=== PATIENT | female | born 1965 | race Two or more races ===

== ENCOUNTER 2022-10-18 16:35 | Inpatient (IN) | payer OTHER ==
[~2022-10-18] VITALS: Ht 162.6 cm; Wt 50.8 kg
[~2022-10-18 16:35] MED LIST: ATOR40TA PO; Aspirin Ec PO; CARV3.122 PO; CLON0.1T PO; GABA-532 PO; GUAI100S9 PO; LOSA25TA27 PO; OXYC-128 PO
--- NOTE | 2022-10-18 17:00 | NUR ---
RECEVED PT 57 YRS FEMALE TRANSFER FROM SNF FOR ABDOMINA PAIN SOFT ONE TENDER TO TOUCH
--- NOTE | 2022-10-18 17:05 | NUR ---
ELIAS DIEGO ON [facility]
--- NOTE | 2022-10-18 17:25 | NUR ---
SEEN BY DR. CARNEY
--- NOTE | 2022-10-18 17:30 | NUR ---
BLOOD DROW BY LAB TACH
--- NOTE | 2022-10-18 18:30 | NUR ---
I&O CATHETER DONE NO URIN OUT PUT NONE
[2022-10-18] MEDS ORDERED: DIVA125C2 PO (18:36)
[2022-10-18] MEDS ORDERED: ATOR40TA PO (18:36)
[2022-10-18] MEDS ORDERED: CARV3.122 PO (18:36)
[2022-10-18] MEDS ORDERED: LOSA50TA39 PO (18:36)
[2022-10-18] MEDS ORDERED: ASPI-1420 PO (18:36)
--- NOTE | 2022-10-18 19:00 | NUR ---
COVID SWAB SENT TO LAB
[2022-10-18 19:09] LABS: BASOPHILS # (AUTO) 0.1 K/uL (0.0-0.2); EOSINOPHILS % (AUTO) 1.4 % (0.0-6.0); HEMATOCRIT 26 % (33-45); HEMOGLOBIN 8.1 g/dL (11.5-14.8); MEAN CORPUSCULAR HGB CONC 32 g/dl (31.0-36.0); MEAN CORPUSCULAR VOLUME 98 fL (82-100); MONOCYTES # (AUTO) 0.4 K/uL (0.1-1.30); MONOCYTES % (AUTO) 5.1 % (2.0-12.0); NEUTROPHILS # (AUTO) 5.8 K/uL (1.8-8.9); NEUTROPHILS % (AUTO) 78.5 % (43.0-81.0); PLATELET COUNT (AUTO) 343 K/uL (150-450); RED BLOOD CELL COUNT(AUTO) 2.63 MIL/uL (4.0-5.2); WHITE BLOOD COUNT (AUTO) 7.4 K/uL (4.3-11.0)
[2022-10-18 19:39] LABS: ALANINE AMINOTRANSFERASE 13 U/L (12-78); ALBUMIN 2.4 g/dL (3.4-5.0); ALKALINE PHOSPHATASE 247 U/L (46-116); ASPARTATE AMINOTRANSFERASE 17 U/L (15-37); BILIRUBIN,DIRECT 0.1 mg/dL (0.0-0.2); BILIRUBIN,TOTAL 0.3 mg/dL (0.2-1.0); CHLORIDE 96 mmol/L (98-107); GLUCOSE 81 mg/dL (74-106); LIPASE 27 U/L (73-393); SODIUM SERUM 129 mmol/L (136-145); TOTAL PROTEIN, SERUM 7.1 g/dL (6.4-8.2)
[2022-10-18 19:41] LABS: MAGNESIUM 2.2 mg/dL (1.8-2.4)
--- NOTE | 2022-10-18 19:41 | NUR ---
HAND OFF GAUDENCIO CAMPOS
[2022-10-18 20:01] LABS: CALCIUM, SERUM 5.6 mg/dL (8.5-10.1); CARBON DIOXIDE 7 mmol/L (21-32); CREATININE 9.9 mg/dL (0.6-1.3); UREA NITROGEN, BLOOD 114 mg/dL (7-18)
[2022-10-18 20:02] LABS: PHOSPHORUS 16.3 mg/dL (2.5-4.9)
--- NOTE | 2022-10-18 20:17 | NUR ---
DARREN COKER [phone]
[2022-10-18] MEDS ORDERED: CALCIUM CHLORIDE 1,000 MG/10 ML DISP.SYRIN ONE (20:21)
[2022-10-18] MEDS ORDERED: SODIUM POLYSTYRENE SULFONATE 15 G/60 ML BOTTLE ONE (20:21)
[2022-10-18] MEDS ORDERED: DEXTROSE 50%-WATER 50 ML DISP.SYRIN ONE (20:22)
[2022-10-18] MEDS ORDERED: INSULIN REGULAR, HUMAN 100 UNIT/ML 10 ML VIAL ONE (20:22)
[2022-10-18] MEDS ORDERED: ALBUTEROL FS 2.5 MG/3 ML VIAL.NEB ONE (20:23)
[2022-10-18] MEDS ORDERED: INSULIN REGULAR, HUMAN 100 UNIT/ML 10 ML VIAL IV ONE (20:30)
[2022-10-18] MEDS ORDERED: SODIUM POLYSTYRENE SULFONATE 15 G/60 ML BOTTLE PO ONE (20:30)
[2022-10-18] MEDS ORDERED: CALCIUM CHLORIDE 1,000 MG/10 ML DISP.SYRIN IV ONE (20:30)
[2022-10-18] MEDS ORDERED: ALBUTEROL FS 2.5 MG/3 ML VIAL.NEB NEB ONE (20:30)
[2022-10-18] MEDS ORDERED: DEXTROSE 50%-WATER 50 ML DISP.SYRIN IV ONE (20:30)
--- NOTE | 2022-10-18 21:10 | NUR ---
DIALYSIS NURSE AMAN [phone]. CALL ONCE PATIENT IS READY FOR DIALYSIS
--- NOTE | 2022-10-18 22:35 | NUR ---
ROOM NOT READY PER ENTERTAINMENT DIRECTOR, WILL CALL AGAIN
--- NOTE | 2022-10-18 22:55 | NUR ---
CLEANED PATIENT AND CHANGED INTO A GOWN.
--- NOTE | 2022-10-18 23:17 | NUR ---
REPORT GIVEN TO MOLLY CAMPOS FOR JONELLE
[2022-10-18] MEDS ORDERED: Z GUARD REMEDY 4 OZ OINT TP PRN (23:30)
[2022-10-18] MEDS ORDERED: ACETAMINOPHEN 325 MG TABLET PO PRN (23:30)
[2022-10-18] MEDS ORDERED: MAG HYDROX/AL HYDROX/SIMETH 30 ML UDC PO PRN (23:30)
[2022-10-18] MEDS ORDERED: ONDANSETRON HCL/PF 4 MG/2 ML VIAL IVP PRN (23:30)
[2022-10-18] MEDS ORDERED: HYDROCODONE/APAP 5/325MG TABLET PO PRN (23:30)
[2022-10-18] MEDS ORDERED: ZOLPIDEM TARTRATE 5 MG TABLET PO PRN (23:30)
[2022-10-18] MEDS ORDERED: MAGNESIUM HYDROXIDE 30 ML UDC PO PRN (23:30)
--- NOTE | 2022-10-18 23:44 | NUR ---
TRANSFERRED TO BED 120 IN STABLE CONDITION
--- NOTE | 2022-10-18 23:55 | NUR ---
RN NOTES RECEIVED REPORT FROM MOLLY CAMPOS FOR JONELLE, PT IN BED AWAKE, A/O X 1, PT DIAGNOSIS MISSED DIALYSIS AND HYPERKALEMIA, ON RA TOLERATING WELL SATING 97%, NOTED WITH APNEA RR 12. AFEBRILE, WITH R HAND #20G FLUSHED WITH NS, NO S/S OF INFILTRATION NOTED. ADMISSION CARE RENDERED, ALL SAFETY MEASURES IMPLEMENTED, BED IN LOWEST POSITION, LOCKED, SIDE RAILS UP, CALL LIGHT WITHIN REACH. ADMITTING MD AT BEDSIDE, STAT DIALYSIS STARTED WITH AMAN CAMPOS. WILL CONTINUE TO MONITOR.
--- NOTE | 2022-10-18 23:56 | NUR ---
JOHN PAUL IS THE INCORRECT INFORMATION
[2022-10-19] VITALS: BP 132/75
[2022-10-19] LABS: BILIRUBIN,URINE NEGATIVE (NEGATIVE); COLOR,URINE YELLOW (YELLOW); LEUKOCYTE ESTERASE ,URINE 1+ (NEGATIVE); NITRITE, URINE NEGATIVE (NEGATIVE); PH,URINE 5.5 (5.0-8.0); PROTEIN,URINE 3+ mg/dl (NEGATIVE); UGLUCOSE NEGATIVE (NEGATIVE); UROBILINOGEN,URINE 0.2 EU/dL (0.2)
[2022-10-19 00:09] LABS: BACTERIA,URINE Few /HPF (None Seen); SQUAMOUS EPITHELIAL CELL,UR Many /HPF (None Seen); URINE AMORPHOUS URATE Many /HPF (None Seen)
--- NOTE | 2022-10-19 00:58 | NUR ---
RN NOTE RECEIVED CRITICAL LAB RESULT FROM LAB TROPONIN 410. MD NOTIFIED, ORDERED ASPIRIN 325 PO AND STAT EKG. ORDER TAKEN AND CARRIED OUT, WILL CONT OT MONITOR.
[2022-10-19] MEDS ORDERED: ASPIRIN 325 MG TABLET PO ONE (01:30)
--- NOTE | 2022-10-19 06:53 | NUR ---
ROSI RN CLOSING NOTES PT REMAINS IN BED ASLEEP BUT EASILY AROUSABLE TO TOUCH AND VOICE, A/O X 1, ON RA TOLERATING WELL SATING 97%, AFEBRILE, PT CONNECTED TO TELEMONITOR AFIB CONTROLLED 64, WITH R HAND #20G FLUSHED WITH NS, NO S/S OF INFILTRATION NOTED. ALL SAFETY MEASURES IMPLEMENTED, BED IN LOWEST POSITION, LOCKED, SIDE RAILS UP, CALL LIGHT WITHIN REACH. DIALYSIS DONE WITH STABLE V/S 2L OUT, WILL ENDORSE TO AM SHIFT NURSE FOR CONTINUITY OF CARE.
[2022-10-19 07:11] LABS: CALCIUM, SERUM 6.7 mg/dL (8.5-10.1); CREATININE 5.2 mg/dL (0.6-1.3); MAGNESIUM 1.9 mg/dL (1.8-2.4); PHOSPHORUS 7.9 mg/dL (2.5-4.9)
[2022-10-19 07:28] LABS: BASOPHILS % (AUTO) 0.4 % (0.0-2.0); EOSINOPHILS % (AUTO) 0.5 % (0.0-6.0); HEMATOCRIT 24 % (33-45); HEMOGLOBIN 7.8 g/dL (11.5-14.8); LYMPHOCYTES # (AUTO) 0.9 K/uL (0.8-4.8); LYMPHOCYTES % (AUTO) 10.6 % (20.0-44.0); MEAN CORPUSCULAR HGB CONC 33 g/dl (31.0-36.0); MEAN CORPUSCULAR VOLUME 93 fL (82-100); MONOCYTES # (AUTO) 0.7 K/uL (0.1-1.30); MONOCYTES % (AUTO) 8.1 % (2.0-12.0); NEUTROPHILS # (AUTO) 6.9 K/uL (1.8-8.9); NEUTROPHILS % (AUTO) 80.4 % (43.0-81.0); PLATELET COUNT (AUTO) 349 K/uL (150-450); RED BLOOD CELL COUNT(AUTO) 2.55 MIL/uL (4.0-5.2); WHITE BLOOD COUNT (AUTO) 8.5 K/uL (4.3-11.0)
--- NOTE | 2022-10-19 07:30 | NUR ---
RN NOTE RECEIVED PATIENT IN BED RESTING ALERT ORIENTED X1 NON VERBAL EYES OPEN IV SITE IS ON LEFT HAND INTACT AND RIGHT PERM-CATH FOR HD INTACT PATENT,SAFETY MEASURE IMPLEMENT BED IN LOW POSITION AND LOCKED,HEAD OF BED ELEVATED CONTINUE TO MONITOR.
[2022-10-19] MEDS: PANTOPRAZOLE 40 MG TABLET.DR PO SCH (07:32)
[2022-10-19 08:13] LABS: POTASSIUM 2.2 mmol/L (3.5-5.1)
[2022-10-19] MEDS: ASPIRIN 81 MG TAB.CHEW PO SCH (08:52)
[2022-10-19] MEDS: HEPARIN SODIUM, PORCINE 5000 UNITS/1 ML VIAL SQ SCH ×2 (08:56→21:09)
[2022-10-19] MEDS ORDERED: POTASSIUM CHLORIDE 10 MEQ/50 ML PREMIXED IVPB FOR PERIPHERAL LINE IV ONE ×2 (09:00→10:00)
[2022-10-19] MEDS ORDERED: POTASSIUM CHLORIDE 20 MEQ TAB.PRT.SR PO ONE (12:00)
[2022-10-19 13:00] VITALS: BP 145/70
[2022-10-19] MEDS: ATORVASTATIN 40 MG TABLET PO SCH ×2 (16:00→21:09)
[2022-10-19 17:00] VITALS: BP 135/76
[2022-10-19] MEDS: CARVEDILOL 6.25 MG TABLET PO SCH (17:00)
--- NOTE | 2022-10-19 18:48 | NUR ---
RN NOTE PATIENT REMAINS ALERT ORIENTED X1 ON ROOM AIR NO SOB NOT ACUTE DISTRESS NOTED,ALL DUE MEDS GIVEN MD ORDERED,POTASSIUM GIVEN FOR POTASSIUM 2.2.KEPT CLEAN AND DRY ALL THE TIME,TURNED AND REPOSITIONED EVERY 2 HOURS,KEPT HEAD OF THE BED ELEVATED WILL ENDORSE NEXT COMING SHIFT FOR CONTINUATION OF CARE.
--- NOTE | 2022-10-19 19:15 | NUR ---
VEHICLE CALIBRATION ENGINEER OPENING NOTE RECEIVED PATIENT IN BED, AAO X 1-2, ON ROOM AIR, NO SOB/DISTRESS NOTED. ON TELE MONITOR CONTROLLED AFIB WITH HR OF 76. RIGHT CHEST WALL PERMACATH NOTED. IV ACCESS ON LEFT HAND #20 G S/L, INTACT AND FLUSHING WELL. SAFETY PRECAUTIONS IN PLACE: BED LOCKED AND IN LOWEST POSITION, SIDE RAILS UP X3, CALL LIGHT WITHIN REACH.
[2022-10-19 21:00] VITALS: BP 139/73
[2022-10-20] VITALS: BP 157/73
[2022-10-20 04:00] VITALS: BP 157/88
[2022-10-20 06:06] LABS: BASOPHILS % (AUTO) 0.7 % (0.0-2.0); EOSINOPHILS % (AUTO) 0.5 % (0.0-6.0); HEMATOCRIT 22 % (33-45); HEMOGLOBIN 7.5 g/dL (11.5-14.8); LYMPHOCYTES # (AUTO) 1.1 K/uL (0.8-4.8); LYMPHOCYTES % (AUTO) 19.1 % (20.0-44.0); MEAN CORPUSCULAR HGB CONC 34 g/dl (31.0-36.0); MEAN CORPUSCULAR VOLUME 93 fL (82-100); MONOCYTES # (AUTO) 0.6 K/uL (0.1-1.30); NEUTROPHILS # (AUTO) 3.9 K/uL (1.8-8.9); NEUTROPHILS % (AUTO) 68.7 % (43.0-81.0); PLATELET COUNT (AUTO) 339 K/uL (150-450); WHITE BLOOD COUNT (AUTO) 5.7 K/uL (4.3-11.0)
[2022-10-20 06:12] LABS: CREATININE 6.5 mg/dL (0.6-1.3); MAGNESIUM 1.9 mg/dL (1.8-2.4); POTASSIUM 3.3 mmol/L (3.5-5.1)
[2022-10-20 06:52] LABS: CALCIUM, SERUM 5.5 mg/dL (8.5-10.1); PHOSPHORUS 9.9 mg/dL (2.5-4.9)
--- NOTE | 2022-10-20 07:05 | NUR ---
EXPERIMENTAL PREFLIGHT MECHANIC CLOSING NOTE PATIENT IN BED, AAO X 1-2, ON ROOM AIR, NO SOB/DISTRESS NOTED. ON TELE MONITOR CONTROLLED AFIB WITH HR OF 76. RIGHT CHEST WALL PERMACATH NOTED. IV ACCESS ON LEFT HAND #20 G S/L, INTACT AND FLUSHING WELL. ALL DUE MEDS WERE GIVEN AND NEEDS ATTENDED. SAFETY PRECAUTIONS MAINTAINED: BED LOCKED AND IN LOWEST POSITION, SIDE RAILS UP X3, CALL LIGHT WITHIN REACH. WILL ENDORSE TO ONCOMING NURSE FOR JONELLE.
--- NOTE | 2022-10-20 07:15 | NUR ---
SHOP WORKER OPEN NOTE: ALERT AND ORIENTED TO NAME. UNLABORED BREATHING. GREEN JOBS TRAINER A.FIB CONTROLLED. RIGHT UPPER CHEST WALL HD CATHETER WITH CLEAN DRESSING. LEFT HAND PEIPHERAL IV SALINE LOCKED. HOB ELEVATED. BILATERAL HALF SIDE RAILS UP X2. BED IN LOW POSITION, LOCKED, EXIT ALARM ON. CALL LIGHT IN REACH. DENIES PAIN OR DISCOMFORT.
[2022-10-20 08:00] VITALS: BP 164/90
[2022-10-20] MEDS: PANTOPRAZOLE 40 MG TABLET.DR PO SCH (08:41)
[2022-10-20] MEDS: ASPIRIN 81 MG TAB.CHEW PO SCH (09:59)
[2022-10-20] MEDS: CARVEDILOL 6.25 MG TABLET PO SCH (10:00)
[2022-10-20] MEDS: HEPARIN SODIUM, PORCINE 5000 UNITS/1 ML VIAL SQ SCH (10:00)
[2022-10-20 12:00] VITALS: BP 159/76
[2022-10-20] MEDS ORDERED: hydrALAZINE HCL IV 20 MG VIAL IV PRN (13:00)
[2022-10-20] MEDS ORDERED: SEVE800T8 PO (13:47)
[2022-10-20] MEDS ORDERED: CARV6.252 PO (13:47)
--- NOTE | 2022-10-20 14:45 | NUR ---
PATIENT IS ALERT AND ORIENTED TO NAME TIME AND REORIENTED TO PLACE. RIGHT UPPER CHEST HD CATH WITH CLEAN DRESSING. PLANT TECHNICIAN/CONTROL ROOM OPERATOR A.FIB CONTROLLED 76 REMOVED. ASSISTED TO BATHROOM ABLE TO VOID AND MOVE BOWELS. KEPT CLEAN AND COMFORTABLE. LEFT HAND SALINE LOCK PERIPHERAL IV SALINE G 20G. DENIES PAIN OR DISCOMFORT. PATIENT DISCHARGED TO [facility] ORDERED. REPORT GIVEN TO TENZIN CAMPOS WITH ALL BELONGINGS.
== END 2022-10-20 14:42 | DRG 194 ==
LOC: ER 16:35 → TELE1 22:35 → TELE-TD 10-19 06:41 → TELE1 10-19 14:22
PROVIDERS: ADMIT Student in an Organized Health Care Education/Training Program; ATTEND Nurse Practitioner Acute Care
PROC: 5A1D70Z Performance of Urinary Filtration, Intermittent, Less than 6 Hours Per Day (ICD-10-PCS; principal; 2022-10-18)
DX: I13.2 Hypertensive heart and chronic kidney disease with heart failure and with stage 5 chronic kidney disease, or end stage renal disease (principal); I21.A1 Myocardial infarction type 2; E44.0 Moderate protein-calorie malnutrition; E87.20 Acidosis, unspecified; E83.51 Hypocalcemia; E83.39 Other disorders of phosphorus metabolism; N18.6 End stage renal disease; E11.22 Type 2 diabetes mellitus with diabetic chronic kidney disease; E87.5 Hyperkalemia; I50.43 Acute on chronic combined systolic (congestive) and diastolic (congestive) heart failure; Z20.822 Contact with and (suspected) exposure to COVID-19; Z79.82 Long term (current) use of aspirin; Z99.2 Dependence on renal dialysis; Z79.891 Long term (current) use of opiate analgesic; Z79.899 Other long term (current) drug therapy; E87.1 Hypo-osmolality and hyponatremia; E78.5 Hyperlipidemia, unspecified; M89.8X9 Other specified disorders of bone, unspecified site; K57.30 Diverticulosis of large intestine without perforation or abscess without bleeding
CPT/HCPCS: 36415; 71045-TC; 80048-TC; 80076-TC; 81001; 83605-TC; 83690-TC; 83735-TC; 84100-TC; 84484-TC; 85025-TC; 87081-TC; 90935-TC; A4223; C9803; G0378; J1644; J1815; J3480; J3490; J7030; J7050